=== PATIENT | female | born 1950 | race Caucasian/White ===

== ENCOUNTER 2020-10-29 07:00 | Day surgery (SDC) | payer OTHER ==
[~2020-10-29] VITALS: Ht 160 cm; Wt 77.1 kg
[~2020-10-29 07:00] MED LIST: CLARITIN10 M1 PO; HUMIRA10 MG/0.2; SINGULAIR10 MG PO; TREXALL5 MG PO
[2020-10-29] MEDS ORDERED: ETODOLAC400 MG (08:42)
[2020-10-29] MEDS ORDERED: GABAPENTIN100 M2 (08:42)
[2020-10-29] MEDS ORDERED: FOLIC ACID1 MG (08:42)
[2020-10-29] MEDS ORDERED: METHOTREXATE2.5 MG (08:42)
[2020-10-29] MEDS ORDERED: SYMBICORT 16010.2 GM (08:43)
[2020-10-29] MEDS ORDERED: SPIRIVA RESPIMAT4 GM (08:43)
[2020-10-29] MEDS ORDERED: HUMIRA(CF)40 MG/0.1 (08:43)
[2020-10-29] MEDS ORDERED: COLACE100 MG PO (10:45)
[2020-10-29] MEDS ORDERED: PERCOCET 5-3251 EACH PO (10:45)
[2020-10-29] MEDS ORDERED: NEURONTIN800 MG PO (10:45)
[2020-10-29] MEDS ORDERED: MEDROLPACK PO (10:45)
[2020-10-29] MEDS ORDERED: DIAZEPAM5 MG PO (10:45)
[2020-10-29] MEDS ORDERED: AMOX-CLAV 875-1 EACH PO (10:45)
== END 2020-10-30 10:00 | disposition home or self-care (01) ==
LOC: CIR.AMB 07:00 → EDSTATUS 10:30 → O/R 10:30 → OB/GYN 15:32 → O/R 15:32 → CIR.AMB 10-30 10:00 → OB/GYN 10-30 16:45
PROVIDERS: ATTEND Orthopaedic Surgery Orthopaedic Surgery of the Spine
DX: M43.16 Spondylolisthesis, lumbar region (principal); M48.062 Spinal stenosis, lumbar region with neurogenic claudication; Z20.822 Contact with and (suspected) exposure to COVID-19
CPT/HCPCS: 22533; 20938; 20939; 22612; 22614; 22840; 22846; 22853 ×2; C1776

== ENCOUNTER 2022-09-28 10:15 | Inpatient (IN) | payer OTHER ==
[~2022-09-28] VITALS: Ht 160 cm; Wt 81.6 kg
[~2022-09-28 10:15] MED LIST changes: +AMOX-CLAV 875-1 EACH PO; +COLACE100 MG PO; +DIAZEPAM5 MG PO; +ETODOLAC400 MG; +FOLIC ACID1 MG; +GABAPENTIN100 M2; +HUMIRA(CF)40 MG/0.1; +MEDROLPACK PO; +METHOTREXATE2.5 MG; +NEURONTIN800 MG PO; +PERCOCET 5-3251 EACH PO; +SPIRIVA RESPIMAT4 GM; +SYMBICORT 16010.2 GM
[2022-09-28] MEDS ORDERED: HUMIRA (13:23)
[2022-09-28] MEDS ORDERED: [UNRECOGNIZED DRUG - OTHER] PO (13:24)
[2022-09-28] MEDS ORDERED: PEPCID PO (13:24)
[2022-10-01] MEDS ORDERED: COLACE100 MG PO (07:19)
[2022-10-01] MEDS ORDERED: PERCOCET 5-3251 EACH PO (07:20)
[2022-10-01] MEDS ORDERED: MEDROLPACK PO (07:20)
== END 2022-10-02 13:24 | disposition home or self-care (01) | DRG 472 ==
LOC: PED 10-01 05:20 → O/R 10-01 05:20 → SURH 10-01 07:00 → PED 10-01 17:24
PROVIDERS: ADMIT Orthopaedic Surgery Orthopaedic Surgery of the Spine; ATTEND Orthopaedic Surgery Orthopaedic Surgery of the Spine
PROC: 0RT30ZZ Resection of Cervical Vertebral Disc, Open Approach (ICD-10-PCS; 2022-10-01)
PROC: 0RG10A0 Fusion of Cervical Vertebral Joint with Interbody Fusion Device, Anterior Approach, Anterior Column, Open Approach (ICD-10-PCS; principal; 2022-10-01 07:00)
DX: M50.01 Cervical disc disorder with myelopathy, high cervical region (principal); M47.12 Other spondylosis with myelopathy, cervical region; M48.02 Spinal stenosis, cervical region